=== PATIENT | male | born 1970 | race Caucasian/White ===

== ENCOUNTER 2016-07-08 14:14 | Emergency (ER) | payer MEDICAID ==
[2016-07-08] MEDS ORDERED: OPTIRAY 350 100 ML VIAL HMH IV ONE (14:15)
[2016-07-08] MEDS ORDERED: ONDANSETRON 4 MG VIAL ONE (16:43)
[2016-07-08] MEDS ORDERED: SODIUM CHLORIDE 0.9% 1,000 ML ONE (16:44)
[2016-07-08] MEDS ORDERED: DILAUDID 1 MG/ML AMP ONE (16:44)
[2016-07-08] MEDS ORDERED: KETOROLAC 30 MG/ML VIAL ONE (16:52)
== END 2016-07-08 21:21 | disposition home or self-care (01) ==
LOC: ER 14:14
DX: R10.13 Epigastric pain (principal); R11.2 Nausea with vomiting, unspecified
CPT/HCPCS: 36415; 74020; 74177; 80053; 81003; 82274; 83690; 85025; 85610; 85730; 96361; 96374; 96375